=== PATIENT | male | born 1975 | race Caucasian/White ===

== ENCOUNTER 2020-04-15 21:55 | Emergency (ER) | payer BC ==
[2020-04-15 22:02] VITALS: BP 190/95; PULSE 94; RESP 18; TEMP 98.1
[2020-04-15] MEDS ORDERED: IBUPROFEN 600 MG TAB PO STA (22:21)
[2020-04-15] MEDS ORDERED: ACETAMINOPHEN TAB 325 MG TAB PO STA (22:21)
--- NOTE | 2020-04-15 22:42 | XR ---
EXAMINATION TYPE: XR finger RT DATE OF EXAM: 04/15/2020 COMPARISON: NONE HISTORY: Laceration TECHNIQUE: 3 views FINDINGS: There is some soft tissue deformity on the dorsum of the middle phalanx of the little finge r consistent with a laceration. I see no fracture nor dislocation. There is no sign of a foreign body . IMPRESSION: Soft tissue deformity. No fracture.
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
[2020-04-15] MEDS ORDERED: BACITRACIN OINT 1 EACH PACKET TOPICAL ONE (22:56)
[2020-04-15] MEDS: LIDOCAINE 1% INJ 10MG/ML (20 ML MDV) SQ ONE ×2 (23:04→23:23)
== END 2020-04-15 23:32 | disposition home or self-care (01) ==
LOC: EC 21:55
DX: S61.206A Unspecified open wound of right little finger without damage to nail, initial encounter (principal); Z79.899 Other long term (current) drug therapy; W22.8XXA Striking against or struck by other objects, initial encounter; Y93.89 Activity, other specified
CPT/HCPCS: 99283

== ENCOUNTER 2020-08-01 08:35 | Emergency (ER) | payer OTHER ==
--- NOTE | 2020-08-01 08:54 | ED ---
General Adult HPI - General Chief complaint: Extremity Injury, Upper Stated complaint: Chest/Shoulder Pain Time Seen by Provider: 08/01/20 08:41 Source: patient Mode of arrival: wheelchair Limitations: no limitations - History of Present Illness Initial comments: Dictation was produced using [employer] dictation software. please excuse any grammatical, word or spelling errors. Chief Complaint: 45-year-old male presents to the emergency department for shoulder pain History of Present Illness: 45-year-old male who presents with right shoulder pain ongoing for 2 weeks. The day before symptoms began he was carrying a heavy couch. Patient states that he has crampy abdominal pain worse with palpation to the right upper trapezius. Sometimes it hurts when he manipulates his right upper extremity. Patient denies any significant comorbidities. He does not take any medications. The ROS documented in this emergency department record has been reviewed and confirmed by me. Those systems with pertinent positive or negative responses have been documented in the HPI. All other systems are other negative and/or noncontributory. PHYSICAL EXAM: General Impression: Alert and oriented x3, not in acute distress HEENT: Normocephalic atraumatic, extra-ocular movements intact, pupils equal and reactive to light bilaterally, mucous membranes moist. Cardiovascular: Heart regular rate and rhythm Chest: Able to complete full sentences, no retractions, no tachypnea Abdomen: abdomen soft, non-tender, non-distended, no organomegaly Musculoskeletal: Pulses present and equal in all extremities, no peripheral edema, tenderness to palpation of the right trapezius, reproducible tenderness with right shoulder manipulation, passive range of motion of the right shoulder is intact Motor: no focal deficits noted Neurological: CN II-XII grossly intact, no focal motor or sensory deficits noted Skin: Intact with no visualized rashes Psych: Normal affect and mood ED course: 45-year-old male presents with subacute right shoulder strain. Vital signs upon arrival are within acceptable limits. X-rays are unremarkable. Clinical presentation consistent with musculoskeletal shoulder strain. Patient given prescription muscle relaxants and by mouth analgesics. - Related Data Previous Rx's Medication Instructions Recorded Cyclobenzaprine [Flexeril] 5 mg PO TID PRN #24 tablet 08/01/20 HYDROcodone/APAP 5-325MG [[place] 1 tab PO Q6HR PRN 3 Days #12 tab 08/01/20 5-325] Allergies Allergy/AdvReac Type Severity Reaction Status Date / Time No Known Allergies Allergy Verified 08/01/20 09:41 Review of Systems ROS Statement: Those systems with pertinent positive or pertinent negative responses have been documented in the HPI. ROS Other: All systems not noted in ROS Statement are negative. Past Medical History Past Medical History: No Reported History History of Any Multi-Drug Resistant Organisms: None Reported Past Surgical History: Orthopedic Surgery Additional Past Surgical History / Comment(s): Right shoulder surgery Past Psychological History: No Psychological Hx Reported Smoking Status: Never smoker Past Alcohol Use History: Occasional Past Drug Use History: Marijuana General Exam Limitations: no limitations Course Vital Signs 08/01/20 08:35 Temperature 97.7 F Pulse Rate 72 Respiratory 18 Rate Blood Pressure 190/129 O2 Sat by Pulse 95 Oximetry Disposition Clinical Impression: Shoulder strain Disposition: HOME SELF-CARE Condition: Good Instructions (If sedation given, give patient instructions): Muscle Strain (ED) Prescriptions: Cyclobenzaprine [Flexeril] 5 mg PO TID PRN #24 tablet PRN Reason: shoulder spasm HYDROcodone/APAP 5-325MG [[place] 5-325] 1 tab PO Q6HR PRN 3 Days #12 tab PRN Reason: Severe Pain Is patient prescribed a controlled substance at d/c from ED?: Yes If prescribed controlled substance>3 days was MAPS reviewed?: Prescribed <3 Days Referrals: Avinash Gonzalez DO [Doctor of Osteopathic Medicine] - 1-2 days
[2020-08-01] MEDS ORDERED: KETOROLAC 15 MG/ML 1 ML VIAL IM STA (09:01)
--- NOTE | 2020-08-01 09:29 | XR ---
EXAMINATION TYPE: XR chest 2V DATE OF EXAM: 08/01/2020 COMPARISON: 09/25/2015 INDICATION: Pain TECHNIQUE: Frontal and lateral views of the chest are obtained. FINDINGS: The heart size is normal. The pulmonary vasculature is normal. The lungs are clear. IMPRESSION: 1. No acute pulmonary process.
--- NOTE | 2020-08-01 09:32 | XR ---
EXAMINATION TYPE: XR shoulder complete RT DATE OF EXAM: 08/01/2020 COMPARISON: 09/25/2015 HISTORY: Pain TECHNIQUE: Shoulder examined in 3 projections FINDINGS: The humeral head articulates with the glenoid. The acromio-clavicular junction has some degenerative change of the distal clavicle. Alignment appear s improved from comparison. Acromioclavicular junction space measures 1.1 cm which is slightly widene d. However, no depression of the acromion in relation of the clavicles evident on the current exam. T his could be related to old separation. Mild separation is not excluded and additional study without with weights could be performed for appropriate clinical suspicion. No acute fractures or dislocations are evident. A follow up study can be performed 7-10 days from acute trauma for continued pain. IMPRESSION: 1. No acute fractures 2. Some degenerative change at the distal clavicle. Alignment appears improved from comparison. 3. Mild grade 1 AC joint separation not excluded. The study without and with weights can be performed for sufficient clinical suspicion
[2020-08-01] MEDS ORDERED: LIDOCAINE 5% PATCH TOPICAL STA (09:35)
[2020-08-01 10:06] VITALS: BP 148/78; PULSE 91; RESP 16; TEMP 98
== END 2020-08-01 10:05 | disposition home or self-care (01) ==
LOC: EC 08:35
DX: S46.911A Strain of unspecified muscle, fascia and tendon at shoulder and upper arm level, right arm, initial encounter (principal); F12.90 Cannabis use, unspecified, uncomplicated; X58.XXXA Exposure to other specified factors, initial encounter
CPT/HCPCS: 73030; 71046; 99283; 96372; J1885

== ENCOUNTER → 2024-05-22 | Outpatient (CLI) | payer OTHER ==
--- NOTE | 2024-05-22 13:22 | MR ---
EXAMINATION TYPE: MR lumbar spine wo con DATE OF EXAM: 05/22/2024 1:09 PM COMPARISON: None. 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 IV Contrast: cc (None if empty) TECHNIQUE: Multiplanar, multisequence images of the lumbar spine were acquired without IV contrast. Veins: The lumbar vertebral segments are normal in height and alignment there is no fracture or subluxation. The L1-2, L2-3 and L3-4 discs are well preserved in height and signal intensity without significant d egenerative disease. At the L3-4 level, there is a moderate broad-based left lateral disc protrusion resulting in signific ant compromising the left L3-4 neural foramina. At the L4-5 level, there is a mild left lateral broa d-based disc protrusion moderately compromising the lateral recess and neuroforamina. At the L5-S1 le adam, there is mild eccentric disc bulge greater to the left of midline moderately compromising the le ft L5-S1 neuroforamina. There is mild neural foraminal stenosis at the L4-5 and L5-S1 levels on the right. There is no central canal stenosis. There is minimal facet degeneration at the L3-4, L4-5 and L5-S1 levels. Paraspinal soft tissues are unremarkable. IMPRESSION: 1. No lumbar spine fracture or malalignment. 2. Moderate degenerative disease at the L4-5 and L5-S1 levels. 3. Broad-based lateral disc protrusions at the L3-4 and L4-5 levels and to a lesser extent L5-S1 leve ls as described above. 4. Multilevel neural foraminal stenosis greatest at the L3-4 level on the left but moderate at the L4 -5 and L5-S1 left. 5. no central canal stenosis [facility], , 05/22/2024 1:19 PM
== END | disposition home or self-care (01) ==
LOC: RADMRIMAIN 12:34
PROVIDERS: ATTEND Family Medicine
DX: M51.17 Intervertebral disc disorders with radiculopathy, lumbosacral region (principal); M48.061 Spinal stenosis, lumbar region without neurogenic claudication; M99.73 Connective tissue and disc stenosis of intervertebral foramina of lumbar region
CPT/HCPCS: 72148